=== PATIENT | female | born 2000 | race African-American/Black ===

== ENCOUNTER 2024-07-18 20:58 | Emergency (ER) | payer OTHER, SELFPAY ==
--- NOTE | 2024-07-18 | ECG_ITS ---
Test Reason : ANXITY /EXTREMETY PAIN Blood Pressure : / mmHG Vent. Rate : 126 BPM Atrial Rate : 126 BPM P-R Int : 138 ms QRS Dur : 082 ms QT Int : 318 ms P-R-T Axes : 046 005 028 degrees QTc Int : 460 ms Sinus tachycardia Otherwise normal ECG No previous ECGs available Referred By: Generic ED Physician Electronically Signed By:RL MILLER
[2024-07-18 21:00] VITALS: BP 140/100; PULSE 145; O2SAT 98
[2024-07-18 21:05] VITALS: PULSE 135
[2024-07-18 21:09] VITALS: BP 136/89; PULSE 130; RESP 18; TEMP 37.4; O2SAT 99; BMI 40.3
--- NOTE | 2024-07-18 21:56 | MHC.EDTECH ---
Patient ekg taken and was read by Provider ,Patient refused blood drawn ,conditioning coach aware .
[2024-07-18 23:57] VITALS: BP 142/81; PULSE 142; RESP 20; TEMP 37.2; O2SAT 100
[2024-07-19 01:03] VITALS: BP 127/64; PULSE 109; RESP 18; TEMP 37.1; O2SAT 100
--- OUTSIDE RECORDS SUMMARY | 2024-07-19 01:39 | XMS_ITS | Continuity of Care Document ---
Author Organization [facility] Address [address] [place] [address] Phone Care Team Providers Care De Ionizer Operator Name Role Phone NO FAMILY, PHYSICIAN Primary Care Provider Unava LOUISE Dillard Emergency Provider Care Teams Patient Care Team Team Status: Active Member Role Status Dates PHYSICIAN NO FAMILY Primary Care Provider Active Visit Care Team Team Status: Inactive Member Role Status Dates PHYSICIAN NO FAMILY Primary Care Provider Active Juan Roberson APRN Emergency Provider Active Chief Complaint and Reason for Visit Chief Complaint rt ankle pain Allergies, Adverse Reactions, Alerts No known allergies Social History Smoking Status Status Start Date End Date Date of Observa tion Never smoked tobacco (finding) March 11, 2023 4:02pm Additional Data Assigned Sex Female Problems Active Problems Medical Problem Onset Date Status Ankle sprain Active Medications Medication Status Dose Units Route Directions Qty Days St art Date End Date Instructions Amoxicillin Active 500 MG PO Twice daily March 11, 2023 12:00am Procedures Procedure Date Performed Status XR ankle RT min 3V* March 11, 2023 3:18pm comple meg Relevant Diagnostic Tests and/or Laboratory Data Diagnostic Imaging Reports Author Jorje Orantes [facility] March 11, 2023 3:54pm Report Date/Time March 11, 2023 3:56p [facility] Main [address] [address] XRay Report Signed Patient: Rani Moyer MR#: [id number] : 2000 Acct:[id number] Age/Sex: 22 / F ADM Date: 3 Loc: ER Room: Type: [facility] ER Attending Dr: Copies to: Juan Roberson APRN~ Ordering Provider: Juan Roberson APRN Date of Service: 03/11/23 XR/XR ankle RT min 3V*: Extremity Injury, Lower XR ankle RT min 3V* 03/11/2023 3:18 PM SIGNS AND SYMPTOMS: Rolled right ankle with generalized right ankle pain PROTOCOL: Frontal, lateral, and oblique radiographs of the right ankle COMPARISON: None FINDINGS: The ankle mortise is intact. There is no fracture or dislocation. There is mild diffuse soft tissue swelling. XR/XR ankle RT min 3V* IMPRESSION: No fracture. Mild diffuse soft tissue swelling is noted. Impression dictated by: Jorje Orantes M.D.03/11/2023 3:54 PM Dictation Location: [place] [address] Transcribed By: [facility] 03/11/231553 Dictated By: Jorje Orantes II, MD 03/11/231551 Signed By: <Electronically signed by Jorje Orantes II, MD in OV> 03/11/231553 Vital Signs Vital Reading Result Reference Range Collection Date/Time Height 65 [in_i] March 11, 2023 3:12pm Weight 97.52 kg March 11, 2023 3:12pm Body Temperature 98.5 [degF] 97.6-99.0 March 11, 2 023 3:12pm Heart Rate 96 /min 60-90 March 11, 2023 3:12pm Respiratory rate 16 /min 12-24 March 11, 2 023 3:12pm Oxygen saturation by Pulse oximetry 100 % 95-10 0 March 11, 2023 3:12pm BP Systolic 149 mm[Hg] 100-140 March 11, 2023 3:12pm BP Diastolic 69 mm[Hg] 60-100 March 11, 2023 3:12pm Advance Directives Advance Directive Response Recorded Date/ Time Advance Directives No March 11 3:43pm Insurance Providers Guarantor Yvette Price Address [address] [facility] [address] Contact Info. Home Phone: Payer Policy Id Coverage Id Subscriber's Name Subscriber Id Effective Date Expiration Date [facility] [id number] Deyanira Moyer [id number] Encounters Encounter Location(s) Arrival/Admit Date Discharge/Depart Date Provider(s) Departed Emergency [facility] Room March 11, 2023 3:06pm March 11, 2023 4:18pm null Plan of Treatment Future Tests Future scheduled test information is unavailable Pending Tests Pending diagnostic test information is unavailable Future Visits Future appointment information is unavailable Referrals to Other Providers Reason for Referral Referral Start Date Provider Provider Contact Information Provider Address [facility] Management Phone: [phone] [phone] NO FAMILY PHYSICIAN Future Procedures Future procedure information is unavailable Future Medications Future medication information is unavailable Patient Instructions Ankle Sprain (DC)
--- OUTSIDE RECORDS SUMMARY | 2024-07-19 01:39 | XMS_ITS | Continuity of Care Document ---
Author Organization [facility] ter Address [address] [place] [address]- Care Team Providers Care Local Flatbed Driver Name Role Phone Not on Staff, PCP Primary Care Physician Unavail able Encounter [facility] Date(s): 06/30/24 - 06/30/[address] [address]- Discharge Disposition: A-D/C Home Attending Physician: Savi Deutsch MD Admitting Physician: Savi Deutsch MD Referring Physician: Not on Staff, Referring MD Problem List Condition Confirmation Course Effective Dates Status Health St atus Informant Severe obesity Confirmed Active Results Radiology Reports * Exam Date Time Procedure Performing Provider Status 06/30/24 1:26 PM Chest 2 Views Frontal and Lat Charlie Torres; Kulwant (Verified) Notes: (Chest 2 Views Frontal and Lat) Reason For Exam: Shortness of Breath, Fever;Other: RESULT: Chest 2 Views Frontal and Lat PA and lateral chest dated June 30, 2024. No prior studies are available. HISTORY: Shortness of breath and fever. FINDINGS: The cardiac silhouette is within normal limits for size. Hilar and mediastinal structuresare unremarkable. No airspace infiltrate or pleural effusion is identified. Visualized osseous structures are unremarkable. IMPRESSION: Normal chest x-ray. Examination [id number]. Thank you for allowing me to participate in the care of this patient. WSN: [id number] Ordering Physician: Savi Deutsch Dictated By: Alex Shell MD Dictated Date/Time: 06/30/24 1:35 pm Reviewed By: Alex Shell MD Signed By: Alex Shell MD Signed Date/Time: 06/30/24 1:35 pm Transcribed By: ARLETH Transcribed Date/Time: 06/30/24 1:35 pm Vital Signs Most recent to oldest [Reference Range]: 1 2 3 Height 165 cm (06/30/24 3:14 PM) 165 cm (06/30/24 3:07 PM) 165 cm (06/30/24 12:08 PM) Weight 109 kg (06/30/24 3:14 PM) 109 kg (06/30/24 3:07 PM) 109 kg (06/30/24 12:08 PM) Oxygen Saturation [94-100 %] 100 % (06/30/24 3:07 PM) 100 % (06/30/24 11:45 AM) 100 % (06/30/24 11:42 AM) Pulse Rate [55-90 bpm] 105 bpm *H* (06/30/24 3:07 PM) 111 bpm *H* (06/30/24 11:45 AM) 108 bpm *H* (06/30/24 11:42 AM) Body Mass Index [18.5-24.99 kg/m2] 40.04 kg/m2 *>HHI* (06/30/24 3:07 PM) 40.04 kg/m2 *>HHI* (06/30/24 11:45 AM) Blood Pressure [90-138/55-84 mm Hg] 127/91mm Hg (06/30/24 3:07 PM) 131/85mm Hg (06/30/24 11:45 AM) Respiratory Rate [16-30 br/min] 20 br/min (06/30/24 3:07 PM) 18 br/min (06/30/24 11:45 AM) Temperature [96.8-100.4 DegF] 99 DegF (06/30/24 3:07 PM) 99.4 DegF (06/30/24 11:45 AM) Mode of Delivery (Oxygen) Room air (06/30/24 3:07 PM) Room air (06/30/24 11:45 AM) Room air (06/30/24 11:42 AM) Blood pressure sites Arm, right (06/30/24 3:07 PM) Arm, left (06/30/24 11:45 AM) Temperature Route Oral (06/30/24 3:07 PM) Oral (06/30/24 11:45 AM) Dry Weight 109 kg (06/30/24 3:14 PM) 109 kg (06/30/24 3:07 PM) 109 kg (06/30/24 12:08 PM) Weight Obtained Via Patient/family state d (06/30/24 11:45 AM) Dry Weight Obtained Via Patient/family s tated (06/30/24 11:45 AM) EKG study * Event Display: ECG 12-Lead Authored Date: Please click on pdf link to open report * Event Display: ECG 12-Lead Authored Date: Ventricular Rate: 118 BPM Atrial Rate: 118 BPM P-R Interval: 140 ms QRS Duration: 86 ms Q-T Interval: 344 ms QTC Calculation(Bazett): 482 ms P [place]: 34 degrees R [place]: -4 degrees T [place]: 18 degrees Sinus tachycardia Otherwise normal ECG No previous ECGs available Confirmed by SAMIRA RODRÍGUEZ MD ([id number]) on 06/30/2024 3:22:04 PM [place]: SAMIRA RODRÍGUEZ MD Patient Care team information Care Team Personnel Name: Not on Staff, PCP Position: S Physician (General Medicine) Member Role: PCP
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
--- NOTE | 2024-07-19 01:55 | ED_ITS ---
HPI - General Adult General Chief complaint: Extremity Problem Stated complaint: hot legs Time Seen by Provider: 07/19/24 01:48 Source: patient Mode of arrival: ambulatory Limitations: no limitations History of Present Illness ED Provider: Dr. Cunningham HPI narrative: Patient spent all day walking at the [place], it was hot. Patient was told by friends that she may have DVTs which scared her. patient does not have any risk factors for DVT Onset (ago): day(s) Related Data Allergies Allergy/AdvReac Type Severity Reaction Status Date / Time No Known Allergies Allergy Verified 07/18/24 21:13 Review of Systems Review of Systems: Yes all other systems are reviewed and are negative Neurologic: Denies Sensory deficit (Neuro) [facility] Social History Social History Smoked in Last 30 Days: No Use of substances other than those prescribed or required for medical reasons: No Advance Directives: No Advance Directives Information Provided: Yes Do you have a plan to hurt others: No Plan Patient : No Physical Exam ED Vital Signs: Vital Signs - 24 hr 07/18/24 21:05 07/18/24 21:09 07/18/24 23:57 Temperature 99.4 F 98.9 F Pulse Rate 135 H 130 H 142 H Respiratory Rate 18 20 Blood Pressure 136/89 142/81 H Pulse Oximetry 99 100 Oxygen Delivery Method Room Air Room Air 07/19/24 01:03 Temperature 98.8 F Pulse Rate 109 H Respiratory Rate 18 Blood Pressure 127/64 Pulse Oximetry 100 Oxygen Delivery Method Room Air BMI result Body Mass Index 40.3 Const Other: anxious obese Nutritional Appearance: obese Orientation/consciousness: oriented to person and patient oriented x3 Limitations: no limitations HENMT Head: Yes normal to inspection Ears: external ears normal General nose exam: Normal external nose present Mouth: Normal oral and palatal mucosa present and oropharynx normal Throat: Yes posterior oropharynx normal Eyes General: appearance normal, both eyes and all related structures Neck Neck: Yes normal visual inspection Chest Chest palpation & inspection: normal inspection of the chest Resp Auscultation: clear to auscultation bilaterally Cardio Jugular venous distension: no JVD Rate: regular rate Rhythm: regular rhythm Heart sounds: S1 normal heart sound present and S2 normal heart sound present GI Inspection: Yes normal to inspection Palpation (GI): Soft to palpation, nontender and No hepatosplenomegaly present Auscultation: normal bowel sounds General: Yes no CVA tenderness Back/Spine/Pelvis Back: no CVA tenderness Skin General skin exam: no rashes or lesions noted Neuro General: oriented to person and patient oriented x3 Cranial nerves: Yes CN's II-XII intact bilaterally Motor exam (neuro): 5/5 motor strength present throughout Sensory Exam: No Sensory deficit (Neuro) Extrem Other: heavy legs but no edema no erythema Psych Appearance: grossly normal Course Reevaluation(s) Reevaluation #1: patient with poor risk factors for dvt, the patient is obese, patient refusing blood work will dc home Time: 03:45 Medical Decision Making Differential Diagnosis Differential Diagnoses: The differential diagnosis associated with the presentation includes (dependent edema, obesity, DVT) Admission/Observation Consideration of admission/observation: Escalation of care including admission/observation considered (upon arrival patient considered for admission) Tests considered The following testing was considered but not selected: Blood work considered low likelihood for DVT Chronic Conditions Patient?s care impacted by: Other (psychiatric illness) Discharge Plan Discharge Clinical Impression: Dependent edema Patient Disposition: Home, Self-Care Instructions: Leg Edema (ED) Referrals: Physician,Shakira J [Primary Care Provider] - 5 days Print Language: Korean
[2024-07-19 06:27] VITALS: BP 118/62; PULSE 102; RESP 18; TEMP 36.6; O2SAT 100
== END 2024-07-19 06:30 | disposition home or self-care (01) ==
PROVIDERS: Emergency Provider Emergency Medicine
DX: R60.0 Localized edema (principal); M79.603 Pain in arm, unspecified; F41.9 Anxiety disorder, unspecified
CPT/HCPCS: 93005; 99283; 99284